=== PATIENT | female | born 2000 | race Caucasian/White ===

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

== ENCOUNTER 2019-05-22 13:59 | Emergency (ER) | payer MEDICAID ==
[~2019-05-22] VITALS: Ht 165.1 cm; Wt 77.3 kg
[2019-05-22 14:05] VITALS: Ht 165.1 cm; Wt 77.3 kg
[2019-05-22] MEDS ORDERED: PRENAVITE1 TAB PO (14:06)
[2019-05-22 14:52] LABS: BASOPHILS 0.1 % (0-2); EOSINOPHILS 0.3 % (0-7); HEMATOCRIT 35.4 % (36.0-48.0); HEMOGLOBIN 11.5 g/dL (12-16); IMMATURE GRANULOCYTES 0.2 % (0-5); LYMPHOCYTES 30.7 % (15-50); MCH 29.5 pg (26.0-34.0); MCHC 32.5 g/dL (31.0-37.0); MCV 90.8 fL (80.0-100.0); MEAN PLATELET VOLUME 9.2 fL (7.4-10.4); MONOCYTES 6.2 % (2-11); NEUTROPHILS 62.5 % (40-80); PLATELET COUNT 302 10x3/uL (130-400); RDW 12.5 % (11.5-14.5); WBC 9.2 10x3/uL (4.8-10.8)
[2019-05-22 15:14] LABS: CALC OSMOLALITY 267 mosm/kg (275-300); CALCIUM 8.8 mg/dL (8.5-10.1); CARBON DIOXIDE 24.4 mmol/L (21.0-32.0); CHLORIDE - SERUM 103 mmol/L (98-107); CREATININE - SERUM 0.6 mg/dL (0.6-1.3); GLUCOSE 76 mg/dL (74-106); POTASSIUM - SERUM 3.7 mmol/L (3.5-5.1); SODIUM 136 mmol/L (136-145); UREA NITROGEN 5 mg/dL (7-18); eGFR NON AFRICAN AMERICAN > 90 mL/min (90-120)
[2019-05-22 15:15] LABS: HCG SERUM POSITIVE (NEGATIVE)
[2019-05-22 15:16] LABS: BILIRUBIN NEGATIVE (NEGATIVE); GLUCOSE NEGATIVE (NEGATIVE); KETONE MODERATE mg/dL (NEGATIVE); NITRITE NEGATIVE (NEGATIVE); SPECIFIC GRAVITY 1.015 (1.005-1.020); UROBILINOGEN NORMAL (NORMAL)
[2019-05-22 15:18] LABS: BACTERIA MODERATE /hpf (NEGATIVE); RED CELLS - URINE 0-5 /hpf (0-5); WHITE CELLS - URINE 0-5 /hpf (NEGATIVE)
[2019-05-22 15:41] LABS: ALBUMIN 3.2 g/dL (3.4-5.0); ALKALINE PHOSPHATASE 46 U/L (30-120); ALT (SGPT) 25 U/L (10-68); BILIRUBIN - TOTAL 0.38 mg/dL (0.2-1.3); HCG - QUANTITATIVE (MATERNAL) 17589 mIU/mL; PROTEIN - SERUM 7.2 g/dL (6.4-8.2)
[2019-05-22 16:12] VITALS: BP 118/66
== END 2019-05-22 16:38 | disposition home or self-care (01) ==
LOC: D.ER 13:59
PROVIDERS: Family Medicine
DX: O46.8X2 Other antepartum hemorrhage, second trimester (principal); Z3A.15 15 weeks gestation of pregnancy

== ENCOUNTER → 2019-08-19 23:50 | Outpatient (CLI) | payer MEDICAID ==
[2019-05-22 14:05] VITALS: BMI 28.3
[~2019-08-19 23:50] MED LIST: PRENAVITE1 TAB PO
== END | disposition home or self-care (01) ==
LOC: D.LDO 23:50
PROVIDERS: ATTEND Student in an Organized Health Care Education/Training Program
DX: O26.899 Other specified pregnancy related conditions, unspecified trimester (principal); Z3A.00 Weeks of gestation of pregnancy not specified

== ENCOUNTER 2019-11-06 05:00 | Inpatient (IN) | payer OTHER ==
[~2019-11-06] VITALS: Ht 165.1 cm; Wt 93.0 kg
[2019-11-06 05:12] VITALS: BP 121/80; Ht 165.1 cm; Wt 93.0 kg
[2019-11-06 05:49] LABS: HEMATOCRIT 33.2 % (36.0-48.0); HEMOGLOBIN 10.8 g/dL (12-16); MCH 27.3 pg (26.0-34.0); MCHC 32.5 g/dL (31.0-37.0); MCV 84.1 fL (80.0-100.0); MEAN PLATELET VOLUME 9.3 fL (7.4-10.4); PLATELET COUNT 366 10x3/uL (130-400); RBC 3.95 10x6/uL (4.00-5.40); RDW 14.1 % (11.5-14.5); WBC 11.1 10x3/uL (4.8-10.8)
[2019-11-06 06:12] LABS: EOSINOPHILS 2 % (0-7); LYMPHOCYTES 25 % (15-50); MONOCYTES 9 % (2-11); NEUTROPHILS 64 % (40-80); PLATELET ESTIMATE NORMAL
[2019-11-06 08:40] LABS: BILIRUBIN NEGATIVE (NEGATIVE); KETONE NEGATIVE (NEGATIVE); NITRITE NEGATIVE (NEGATIVE); UROBILINOGEN NORMAL mg/dL (< 2)
[2019-11-06 08:42] LABS: UDS - AMPHET NEGATIVE QUAL (NEGATIVE); UDS - BARB NEGATIVE QUAL (NEGATIVE); UDS - BENZO NEGATIVE QUAL (NEGATIVE); UDS - COCAINE NEGATIVE QUAL (NEGATIVE); UDS - OPIATE NEGATIVE QUAL (NEGATIVE); UDS - PCP NEGATIVE QUAL (NEGATIVE); UDS - THC NEGATIVE QUAL (NEGATIVE)
[2019-11-07] VITALS (8 sets, daily range): BP systolic 102–121; BP diastolic 53–75
--- NOTE | 2019-11-07 04:10 | NUR ---
PT BACK TO ROOM FROM PACU. AWAKE AND SLIGHTLY GROGGY. ORIENTED X3. VSS. ABD SOFT AND TENDER. BS HYPOACTIVE. ABD DRESSING TO LOWER ABD DRY AND INTACT.FUNDUS FIRM DEVIATED TO RIGHT AT UMBILICUS WITH MODERATE AMT OF RUBRA LOCHIA RETURNED WITH MASSAGE NO CLOTS. MIRZA TO BSD DRAINING DEVANTE COLORED URINE. PT RATES PAIN 3/10. SCD'S ON. PT UNABLE TO MOVE LOWER EXTREMITIES. S/O AT BEDSIDE.
--- NOTE | 2019-11-07 04:30 | NUR ---
FUNDUS FIRM MIDLINE AT UMBILICUS WITH SMALL AMT OF RUBRA LOCHIA RETURNED WITH MASSAGE. ABY AND MIRZA CARE DONE.
--- NOTE | 2019-11-07 04:45 | NUR ---
FUNDUS FIRM MIDLINE AT UMBILICUS WITH SCANT AMT OF RUBRA LOCHIA RETURNED.
--- NOTE | 2019-11-07 05:00 | NUR ---
PT SITTING UP DRINKING JUICE, DENIES ANY NAUSEA. FUNDUS FIRM MIDLINE AT UMBILICUS WITH SCANT AMT OF RUBRA LOCHIA. ABY CARE DONE,
--- NOTE | 2019-11-07 05:15 | NUR ---
PT AWAKE, RATES PAIN 3/10 GEOSCIENCE PROFESSOR EFFECTIVE FOR PAIN CONTROL. FUNDUS FIRM MIDLINE AT UMBILICUS WITH SCANT AMT OF RUBRA LOCHIA RETURNED.
--- NOTE | 2019-11-07 05:30 | NUR ---
FUNDUS FIRM MIDLINE AT UMBILICUS WITH SCANT AMT OF RUBRA LOCHIA. BACK TO NURSERY. PT RESTING QUIETLY, LIGHTS DIMMED, ENCOURAGED PT REST. S/O AT BEDSIDE. CALL LIGHT, PHONE, AND MANAGER INSTALLATION BUTTON IN REACH
--- NOTE | 2019-11-07 08:15 | NUR ---
AM ASSESSMENT COMPLETED. ABDOMEN PALPATES SOFT, WITH LARGE WHITE DRESSING NOTED TO LOW TRANSVERSE INCISION, C/D/I. FUNDS FIRM, U/1, SMALL RUBRA LOCHIA, NO CLOTS EXPELLED. MIRZA CATH EMPTIED WITH TOTAL OF 800 ML'S DARK YELLOW URINE, PERICARE DONE WITH WARM WET WASHCLOTHS, NEW PERITOWELS/CHUX CHANGED. NEW PERIPADS PLACED. GOWN CHANGED, AND NEW ICE PACK PLACED OVER GOWN TO INCISION. PT REPOSITIONED TO RIGHT TILT. PT USING INCENTIVE SPIROMETER X5 WELL, AND COUGHING EXERCISES X3. PILLOWS PLACED BEHIND BACK FOR SUPPORT AND COMFORT. CLEAN SHEET AND BLANKET PROVIDED. LARGE MUG OF ICE WATER SERVED TO PT. PT DENIES ALL OTHER NEEDS. SRUP X2, CALL LIGHT AND PHONE WITHIN REACH.
--- NOTE | 2019-11-07 09:15 | NUR ---
INFANT TO ROOM IN CRIB, BANDS VERIFIED. NO DISTRESS NOTED. BABY HANDED TO MOTHER TO [place]. FOB AWAKE NOW. ALL DENY NEEDS AT THIS TIME.
[2019-11-07 10:02] LABS: HEMATOCRIT 27.1 % (36.0-48.0); MCH 25.8 pg (26.0-34.0); MCHC 30.6 g/dL (31.0-37.0); MCV 84.2 fL (80.0-100.0); MEAN PLATELET VOLUME 8.3 fL (7.4-10.4); RBC 3.22 10x6/uL (4.00-5.40); RDW 14.1 % (11.5-14.5); WBC 11.2 10x3/uL (4.8-10.8)
[2019-11-07 10:24] LABS: HEMOGLOBIN 8.3 g/dL (12-16); PLATELET COUNT 243 10x3/uL (130-400)
[2019-11-07 10:48] LABS: LYMPHOCYTES 11 % (15-50); MONOCYTES 2 % (2-11); NEUTROPHILS 86 % (40-80); PLATELET ESTIMATE NORMAL
--- NOTE | 2019-11-07 12:28 | NUR ---
TORADOL 30 MG GIVEN IVP DILUTED IN 8 CC'S NS. SEE EMAR FOR ALL MEDS ADM BY THIS RN. SRUP X2, CALL LIGHT AND PHONE WITHIN REACH. PT HAS REGULAR LUNCH TRAY ON BEDSIDE TABLE, DENIES N/V, SOB, DIZZINESS OR DIFFICULTY BREATHING. PT CONTINUES TO USE INCENTIVE SPIROMETER WELL. ABDOMEN CONTINUES TO PALPATE SOFT, SURGICAL DRESSING REMAINS C/D/I, SMALL RUBRA LOCHIA, U/1, NO CLOTS. FOB HAVING DICCICULTY WITH FEEDING . EDUCATION PROVIDED TO CHECK FOR CLEAN AND DRY DIAPER, SWADDLE , AND POSITIONING OF WHILE FEEDING. BABY WILL LATCH FOR A FEW SECONDS AND THEN NOT LATCH WELL. FOB WILL FEED . CHAITANYA SANCHEZ NURSERY INFORMED OF BABY'S POOR LATCH EFFORTS. SHE WILL ROUND ON WHEN FINISHED FEEDING CURRENT BABY. MOTHER AND FATHER AGREE. DENIES ALL OTHER NEEDS AT THIS TIME.
--- NOTE | 2019-11-07 14:00 | NUR ---
DR. SPICER ON UNIT, TO ROOM TO SPEAK WITH PT. DISCUSSING PLAN OF CARE WITH PT TO ADVANCE CARE, WILL D/C HERMES, ROSANNE IV, ADVANCE DIET, AND CHANGE PAIN MEDICINE TO PO.
--- NOTE | 2019-11-07 16:15 | NUR ---
TO PT'S ROOM, IV PITOCIN IS COMPLETED. PT PUSHES RENT COLLECTOR BUTTON BEFORE DISCONTINUATION. MEDICATION FOR PO PAIN MEDS DISCUSSED WITH PT. SEE EMAR FOR ALL MEDS ADM BY THIS RN. FUNDUS FIRM, U/1, ABD SOFT, WITH MARIANGEL NOTED TO LTCS INCISION, C/D/I. MIRZA CATH DC'D WITH 300 MLS EMPTIED. TOTAL OF 1300 FOR THIS SHIFT. PERICARE DONE WITH WARM WET WASHCLOTHS, NEW PERIPAD/CHUX APPLIED. NEW ICE PACK PLACED OVER GOWN TO INCISION. PT REQUESTS APPLE JUICE, SERVED. IV SL. DENIES ALL OTHER NEEDS. SRUP X2, CALL LIGHT AND PHONE WITHIN REACH.
--- NOTE | 2019-11-07 18:00 | NUR ---
PT CALLS OUT CHECK AND TRANSFER BEADER LIGHT REQUESTING TO GET UP TO THE BATHROOM TO PEE, TO ROOM, PT ASSISTED UP TO BR, GAIT SLOW AND STEADY. PT THEN VOIDS 600 MLS INTO [place] HAT, 2 SMALL DIME SIZED CLOTS NOTED IN [place] HAT. PERICARE DONE WITH WARM WET WASHCLOTHS, AND PERIBOTTLE, PERIPADS/PANTIES ON, PT THEN BACK TO BED. SRUP X2, CALL LIGHT AND PHONE WITHIN REACH. SRUP X 2, CALL LIGHT AND PHONE WITHIN REACH. PT SERVED SPRITE TO DRINK AT HER REQUEST. PT DENIES ALL OTHER NEEDS AT THIS TIME. SRUP X2, CALL LIGHT AND PHONE WITHIN REACH.
--- NOTE | 2019-11-07 18:55 | NUR ---
REPORT GIVEN TO 7 P SHIFT.
--- NOTE | 2019-11-07 19:30 | NUR ---
PATIENT AMBULATING IN HALLWAY WITH SIGNIFICANT OTHER AT THIS TIME, NO DISTRESS NOTED.
--- NOTE | 2019-11-07 20:17 | NUR ---
SHIFT ASSESSMENT COMPLETED, SEE FLOWSHEET. SIGNIFICANT OTHER AT BEDSIDE FOR SUPPORT. PT ENCOURAGED TO CALL WITH ANY NEEDS.
--- NOTE | 2019-11-07 22:30 | NUR ---
APPLE JUICE PROVIDED PER PT REQUEST. BED REMAINS LOCKED IN LOW POSITION, SIDERAILS UPX2, CALL ZEPEDA AND TRAY TABLE IN REACH. NO OTHER NEEDS IDENTIFIED, WILL CONTINUE TO MONITOR.
--- NOTE | 2019-11-07 22:45 | NUR ---
PAIN MEDICATION ADMINISTERED PER PT REQUEST AND MD ORDERS, SEE EMAR
--- NOTE | 2019-11-07 23:56 | NUR ---
PAIN MEDICATION ADMINISTERED PER PT REQUEST AND MD ORDERS. SEE EMAR
[2019-11-08] VITALS (7 sets, daily range): BP systolic 96–119; BP diastolic 51–55
--- NOTE | 2019-11-08 01:00 | NUR ---
PT SITTING UP IN BED, AT BEDSIDE IN OPEN CRIB. NO NEEDS IDENTIFIED, WILL CONTINUE TO MONITOR.
--- NOTE | 2019-11-08 03:10 | NUR ---
PT SITTING UP IN BED, REMAINS IN OPEN CRIB AT BEDSIDE. PT DENIES NEEDS, TO NURSERY VIA OPEN CRIB AT THIS TIME.
--- NOTE | 2019-11-08 04:45 | NUR ---
IN TO ADMINISTER PAIN MEDICATION AND PT REFUSES. STATES THAT SHE DOESNT NEED ANY PAIN MEDICATION.
--- NOTE | 2019-11-08 05:25 | NUR ---
INFANT TO ROOM VIA OPEN CRIB, ID VERIFIED. PT DENIES NEEDS AT THIS TIME. WILL CONTINUE TO MONITOR
[2019-11-08 06:34] LABS: BASOPHILS 0.2 % (0-2); EOSINOPHILS 0.6 % (0-7); HEMATOCRIT 23.5 % (36.0-48.0); IMMATURE GRANULOCYTES 0.5 % (0-5); LYMPHOCYTES 21.1 % (15-50); MCH 25.9 pg (26.0-34.0); MCHC 30.6 g/dL (31.0-37.0); MCV 84.5 fL (80.0-100.0); MEAN PLATELET VOLUME 9.5 fL (7.4-10.4); MONOCYTES 13.3 % (2-11); NEUTROPHILS 64.3 % (40-80); PLATELET COUNT 275 10x3/uL (130-400); RBC 2.78 10x6/uL (4.00-5.40); RDW 14.2 % (11.5-14.5); WBC 13.3 10x3/uL (4.8-10.8)
[2019-11-08 06:43] LABS: HEMOGLOBIN 7.2 g/dL (12-16)
--- NOTE | 2019-11-08 06:49 | NUR ---
DR SPICER PAGED
--- NOTE | 2019-11-08 06:50 | NUR ---
DR SPICER CALLED BACK, REPORTED PTS H&H. NEW ORDERS NOTED TO TRANSFUSE ONE UNIT PRBC'S AND REPEAT AN H&H AT NOON.
--- NOTE | 2019-11-08 07:00 | NUR ---
REPORT TO AM SHIFT TO ASSUME PT CARE.
--- NOTE | 2019-11-08 07:56 | NUR ---
VSS. C/O ABD AND INCISIONAL DISCOMFORT. EDUCATED ON PAIN MEDS AND INTERVENTIONS. REQUESTS NORCO AND MOTRIN, WILL PROVIDE. DR. SPICER AT BEDSIDE, DISCUSSING POC WITH PT AND ANSWERING QUESTIONS REGARDING PRBC. PT AGREEABLE TO RECEIVING PRBC TRANSFUSION.
--- NOTE | 2019-11-08 08:05 | NUR ---
PREMED FOR PRBC GIVEN. CONTINUES TO C/O ABD AND INCISIONAL DISCOMFORT, MEDICATED PER EMAR. PT INSTRUCTED ON NEXT PAIN MED TIMES PRN, VERBALIZES UNDERSTANDING. L WRIST PIV FLUSHES WITHOUT DIFFICULTY, NO S/S OF INFILTRATION NOTED. ICE WATER AND ORANGE JUICE PROVIDED PER PT REQUEST. BED IN LOW POSITION WITH SRUP X2. CALL LIGHT AND PHONE WITHIN REACH. WILL CONTINUE TO MONITOR.
--- NOTE | 2019-11-08 08:19 | NUR ---
EDUATED ON S/S OF TRANFUSION REACTION TO REPORT, VERBALIZES UNDERSTANDING. UNIT VERIFIED WITH Tyson TY RN. PRBC TRANSFUSION STARTED AT 150MLS/HR. THIS RN REMAINS AT BEDSIDE.
--- NOTE | 2019-11-08 08:26 | NUR ---
SHIFT ASSESSMENT COMPLETED PER FLOWSHEET. VSS. FUNDUS FIRM, MIDLINE AND U1 WITH SCANT RUBRA LOCHIA, NO CLOTS NOTED. REPORTS THAT SHE IS VOIDING AND PASSING FLATUS WITHOUT DIFFICULTY. PRBC TRANSFUSION GOING AT THIS TIME WITHOUT DIFFICULTY, NO S/S OF INFILTRATION NOTED. REFUSES SCD'S AT THIS TIME. 2+ BLE PITTING EDEMA, PT REPORTS IMPROVEMENT IN EDEMA SINCE ADMIT. POC DISCUSSED WITH PT AND SIGNFICANT OTHER, BOTH VERBALIZE UNDERSTANDING AND DENY QUESTIONS. BED IN LOW POSITION WITH SRUP X2. CALL LIGHT AND PHONE WITHIN REACH.
--- NOTE | 2019-11-08 08:36 | NUR ---
VSS. NO S/S OF PRBC TRANSFUSION REACTION NOTED. RATE INCREASED TO 175 MLS/HR. WILL CONTINUE TO MONITOR. FOB AWAKE AND FEEDING INFANT AT THIS TIME. PT DENIES NEEDS. REPORTS THAT PAIN IS NOW 3/10. BED IN LOW POSITION WITH SRUP X2. CALL LIGHT AND PHONE WITHIN REACH. WILL CONTINUE TO MONITOR.
--- NOTE | 2019-11-08 09:31 | NUR ---
PRBC CONTINUES TO INFUSE WITHOUT DIFFICUTLY, NO S/S OF TRANSFUSION REACTION. DENIES NEEDS AT THIS TIME. DENIES PAIN. BED IN LOW POSITION WITH SRUP X2. CALL LIGHT AND PHONE WITHIN REACH. WILL CONTINUE TO MONITOR.
--- NOTE | 2019-11-08 10:10 | MORECARE ---
CASE MANAGEMENT DISCHARGE SUMMARY PATIENT: LÁZARO ARELLANO UNIT: [id number] ADM DATE: 11/06/19 AGE: 19 : [birth year] SEX: F ROOM/BED: D.1273 AUTHOR: EDUARD SIMMS PHYSICIAN: REFERRING PHYSICIAN: CORTNEY SPICER MD DATE OF SERVICE: 11/08/19 Discharge Plan Patient Name: LÁZARO ARELLANO Facility: [facility]:[place] : 2000 Planned Disposition: Home Anticipated Discharge Date: 11/11/19 Discharge Date: Expected LOS: 5 Initial Reviewer: [email or web address] Initial Review Date: 11/06/2019 Generated: 11/08/19 11:09 am Patient Name: LÁZARO ARELLANO Page [phone] at 1010 All edits/amendments must be made on the electronic document DICTATION DATE: 11/08/19 1009 CHICK SEXER: RAYMOND 11/08/19 1009 RPT#: [id number] DC DATE: STATUS: ADM IN [facility] [address] [place] [address] END OF REPORT
--- NOTE | 2019-11-08 10:24 | NUR ---
PRBC TRANSFUSION COMPLETED. VSS. NO S/S OF TRANSFUSION REACTION NOTED. L WRIST PIV NOTED TO BE LEAKING, D/C'D WITH TIP INTACT. BANDAID APPLIED. PADS PROVIDED PER [facility] REQUEST. DENIES ADDITIONAL NEEDS. BED IN LOW POSITION WITH SRUP X2. CALL LIGHT AND PHONE WITHIN REACH. RESTING QUIETLY IN OPEN CRIB AT BEDSIDE. FOB SLEEPING ON COUCH.
--- NOTE | 2019-11-08 11:39 | NUR ---
POST TRANSFUSION VSS. C/O INCISIONAL AND ABD DISCOMFORT, NORCO GIVEN PER EMAR. DENIES ADDITIONAL NEEDS. BED IN LOW POSITION WITH SRUP X2. CALL LIGHT AND PHONE WITHIN REACH. WILL CONTINUE TO MONITOR. INFANT RESTING QUIETLY IN OPEN CRIB AT BEDSIDE. FOB SLEEPING ON COUCH.
--- NOTE | 2019-11-08 12:19 | NUR ---
PAIN REASSESSMENT COMPLETED, TALKING ON CELL PHONE, PAIN 04/05. DENIES NEEDS. WILL NOTIFY RN WHEN READY TO SHOWER.
--- NOTE | 2019-11-08 12:53 | NUR ---
PT TO BR TO SHOWER. LINENS AND TOILETRIES PROVIDED AT PT REQUEST.
--- NOTE | 2019-11-08 14:26 | NUR ---
VSS. FUNDUS REMAINS FIRM, MIDLINE AND U2. SMALL AMT RUBRA LOCHIA, NO CLOTS NOTED. PAIN 1/10, ABD AND INCISIONAL DISCOMFORT. MOTRIN OFFERED AND DECLINED. PT INSTRUCTED TO NOTIFY RN WHEN READY FOR LINEN CHANGE, VERBALIZES UNDERSTANDING. DENIES NEEDS AT THIS TIME. BONDING WITH . FOB AT BEDSIDE, SUPPORTIVE AND ATTENTIVE TO PT AND NEEDS. BED IN LOW POSITION WITH SRUP X2. CALL LIGHT AND PHONE WITHIN REACH. WILL CONTINUE TO MONITOR.
--- NOTE | 2019-11-08 14:57 | NUR ---
AMBULATORY IN [place] WITH SIGNIFICANT OTHER. STEADY GAIT NOTED. DENIES NEEDS. REQUEST PAIN MEDICATION AT NEXT AVAILABLE TIME.
--- NOTE | 2019-11-08 15:39 | NUR ---
RN TO BEDSIDE D/T HEARING RAISED VOICES COMING FROM ROOM. PT AND SIGNIFICANT OTHER ARGUING, PT TEARFUL, STATES THAT SIGNIFICANT OTHER IS WANTING HER TO WALK OUTSIDE WITH HIM AND SHE DOESN'T FEEL LIKE IT. DISCUSSED WITH PT AND SIGNIFICANT OTHER IMPORTANCE OF REMAINING ON UNIT D/T RECEIVING NAROTICS AND ALSO IF QUESTIONS REGARDING CARE ARISE. SIGNIFICANT OTHER STATES THAT HE IS GOING TO LEAVE, PT ENCOURAGED HIM TO LEAVE. PT DENIES NEEDS, STATES THAT SHE IS OKAY AND DENIES WANTING TO SPEAK WITH ANYONE AT THIS TIME. IN NBN. BED IN LOW POSITION WITH SRUP X2. CALL LIGHT AND PHONE WITHIN REACH.
--- NOTE | 2019-11-08 16:09 | NUR ---
PAIN REASSESSMENT COMPLETED, 05/03. DENIES NEED FOR ADDITIONAL INTERVENTIONS. SIGNIFICANT OTHER NOT AT BEDSIDE AT THIS TIME, STATES THAT HE LEFT "FOR A LITTLE BIT BUT IS SUPPOSED TO COME BACK." STATES THAT SHE IS GOING TO [place]. DENIES NEEDS. BED IN LOW POSITION WITH SRUP X2. CALL LIGHT AND PHONE WITHIN REACH. REMAINS IN NBN AT THIS TIME.
--- NOTE | 2019-11-08 16:41 | NUR ---
PT SUPERVISOR OFFSET PLATE PREPARATION LIGHT. REQUESTS AND RECEIVES TOWELS. STATES SO IS IN SHOWER AT THIS TIME.
--- NOTE | 2019-11-08 18:00 | NUR ---
PT LYING IN SEMI-GONZALEZ'S POSITION. EYES CLOSED. RESP NON-LABORED. PT WAKES UPON ENTERING ROOM. DENIES NEEDS OR C/O.
--- NOTE | 2019-11-08 18:04 | NUR ---
ROUNDS MADE. LIGHTS OFF, RESTING QUIETLY WITH EYES CLOSED, RESP REGULAR AND UNLABORED, NO S/S OF DISTRESS NOTED. BED IN LOW POSITION WITH SRUP X2. CALL LIGHT AND PHONE WITHIN REACH. WILL CONTINUE TO MONITOR.
--- NOTE | 2019-11-08 19:09 | NUR ---
SHIFT ASSESSMENT COMPLETED, SEE FLOWSHEET.
[2019-11-08 19:30] LABS: HEMATOCRIT 26.2 % (36.0-48.0); HEMOGLOBIN 8.2 g/dL (12-16)
--- NOTE | 2019-11-08 20:44 | NUR ---
PAIN MEDICATION ADMINISTERED PER PT REQUEST AND MD ORDERS. SEE EMAR. PT SITTING UP IN BED WITH INFANT IN HER ARMS. BED REMAINS LOCKED IN LOW POSITION, SIDE RAILS UPX2, CALL ZEPEDA AND TRAY TABLE IN REACH. NO FURTHER NEEDS IDENTIFIED. SIGNIFICANT OTHER AT BEDSIDE FOR SUPPORT. WILL CONTINUE TO MONITOR.
--- NOTE | 2019-11-08 22:23 | NUR ---
PT SITTING UP IN BED CHANGING INFANTS DIAPER, DENIES NEEDS AT THIS TIME. WILL CONTINUE TO MONITOR
--- NOTE | 2019-11-09 00:51 | NUR ---
PATIENT SITTING UP IN BED, SIGNIFICANT OTHER ALSO IN BED HOLDING THE . PAIN MEDICATION ADMINISTERED PER PT REQUEST AND MD ORDERS. SEE EMAR. NO FURTHER NEEDS IDENTIFIED. WILL CONTINUE TO MONITOR
--- NOTE | 2019-11-09 03:20 | NUR ---
PATIENT SITTING UP IN BED GETTING A BOTTLE READY TO FEED HER . PT DENIES NEEDS AT THIS TIME. WILL CONTINUE TO MONITOR.
[2019-11-09 04:09] LABS: RAPID PLASMA REAGIN Non Reactive (Non Reactive)
--- NOTE | 2019-11-09 04:50 | NUR ---
PATIENT SLEEPING, RESPIRATIONS EVEN AND NON LABORED. NO DISTRESS NOTED, WILL CONTINUE TO MONITOR.
--- NOTE | 2019-11-09 05:15 | NUR ---
INFANT RETURNED TO ROOM VIA OPEN CRIB, ID VERIFIED.
--- NOTE | 2019-11-09 06:40 | NUR ---
PATIENT RESTING QUIETLY WITH EYES CLOSED, EASILY AROUSED TO VERBAL. NO NEEDS IDENTIFIED AT THIS TIME, WILL CONTINUE TO MONITOR
--- NOTE | 2019-11-09 06:51 | OP ---
PATIENT NAME: LÁZARO ARELLANO MEDICAL RECORD: [id number] :[birth year] LOCATION:[facility] D.1273 ADMISSION DATE:11/06/19 SURGEON: GAEL DORSEY MD DATE OF OPERATION: 11/07/2019 PREOPERATIVE DIAGNOSES: 1. Term intrauterine at 39 weeks. 2. Failed induction of labor. 3. Arrest of descent in the second stage of labor. POSTOPERATIVE DIAGNOSES: 1. Term intrauterine at 39 weeks. 2. Failed induction of labor. 3. Arrest of descent in the second stage of labor. PROCEDURE: Primary low transverse section. SURGEON: Gael Dorsey MD ANESTHESIA: Regional via epidural. INTRAVENOUS FLUIDS: Per anesthesia record. ESTIMATED BLOOD LOSS: 1200 cc. SPECIMENS: Placenta and cord for gases. FINDINGS: 1. Viable , Apgars 9 at one and 9 at five. 2. Placenta delivered manually intact, 3-vessel cord noted. 3. Normal adnexa bilaterally. COMPLICATIONS: None apparent. SPECIMENS: Placenta and cord for gases. PROCEDURE IN DETAIL: The patient was taken to the operating room where regional anesthesia was achieved without difficulty. The patient was prepped and draped in normal sterile fashion in the dorsal supine position. SCDs were on and functioning normally. A Carmona catheter had been placed and was draining freely. The patient was prepped and draped, and upon testing of the anesthetic level, a Pfannenstiel skin incision was made, extended downward to the underlying subcutaneous fat to level of fascia. The fascia was then excised in the midline and extended bilaterally using the Jacques scissors. Superior and inferior aspect of the fascial incision were then tented upward with 2 Alonzo clamps and dissected using the Jacques scissors and bipolar cautery. The rectus muscle was then bluntly in the midline and the peritoneal incision entered at the superior aspect of the incision bluntly. The peritoneal incision was then stretched and excised bilaterally using the Metzenbaum scissors and bladder blade was then placed into the pelvis and a bladder flap created by excising the anterior leaf of the broad ligament across the lower uterine segment. Due to a known low lying anterior placenta, a low transverse incision was made approximately 3/4 of a depth of the uterine tissue and then the rest of the tissue was then perforated bluntly using a finger. The uterine incision was then extended using the Pelosi method. The vertex was delivered OPERATIVE REPORT [id number] COGBURN,LÁZARO atraumatically followed by the body. Then it was bulb suctioned. Upon delivery, the cord was clamped times 2, cut, and the infant was handed to awaiting nursery team. Cord was then obtained for gases and the placenta was removed manually and intact. The placenta was exteriorized and cleared of all clots and debris and vigorously massaged. A good uterine tone was noted. The uterine incision was repaired with 0 Vicryl in a running locked fashion times 3 with multiple periods of mild atony relieved by massage. Following repair of the uterus, posterior cul-de-sac was then thoroughly irrigated and uterus was returned to the pelvis. Anterior cul-de-sac was then thoroughly irrigated and the uterine incision was found to be hemostatic. The counts were correct times 2 for needles, sponges, and instruments. The fascia was repaired with 0 loop PDS and skin repaired with michelle. The patient tolerated procedure well, transferred to postanesthesia recovery, stable without incident. TRANSINT:[id number] Voice Confirmation ID: [id number] DOCUMENT ID: [id number] GAEL DORSEY MD at 0651 CC: [id number] DICTATION DATE: 11/08/19 1543 SPECIAL EFFECTS PERSON: 11/09/19 0150 ADM IN [facility] [address] [id number]
[2019-11-09 07:29] VITALS: BP 109/60
--- NOTE | 2019-11-09 07:29 | NUR ---
SHIFT ASSESSMENT COMPLETED PER FLOWSHEET. VSS. FUNDUS FIRM, MIDLINE AND U2 WITH SCANT RUBRA LOCHIA, NO CLOTS NOTED. REPORTS THAT SHE IS VOIDING AND PASSING FLATUS WITHOUT DIFFICULTY. BOWELS SOUNDS PRESENT AND ACTIVE X4 QUADRANTS. LOWER TRANSVERSE ABD INCISION WELL APPROXIMATED, MARIANGEL INTACT, NO DRAINAGE NOTED. 1+ BLE. REFUSES SCD'S. NEG VICKI'S SIGN BILATERALLY. C/O ABD AND INCISIONAL DISCOMFORT 08/03, REQUESTS PRN MEDS, WILL PROVIDE. ICE WATER AND ORANGE JUICE PROVIDED. DENIES ADDITIONAL NEEDS. BED IN LOW POSITION WITH SRUP X2. CALL LIGHT AND PHONE WITHIN REACH. WILL CONTINUE TO MONITOR. SIGNIFICANT OTHER SLEEPING ON COUCH. POC REVIEWED WITH PT, VERBALIZES UNDERSTANDING AND DENIES QUESTIONS.
--- NOTE | 2019-11-09 07:49 | NUR ---
DR. SPICER AT BEDSIDE DISCUSSING POC WITH PT. MEDICATED WITH NORCO AND MOTRIN PROVIDED PER EMAR PER PT REQUEST FOR C/O ABD AND INCISIONAL DISCOMFORT. DENIES ADDITIONAL NEEDS. SIGNIFICANT REMAINS ON COUCH SLEEPING AT THIS TIME.
--- NOTE | 2019-11-09 08:26 | NUR ---
RESTING WITH EYES CLOSED, AROUSES WITH DOOR OPENING. PAIN NOW 3/10, DENIES ADDITIONAL NEEDS. BED IN LOW POSITION WITH SRUP X2. CALL LIGHT AND PHONE WITHIN REACH. SIGNIFICANT OTHER REMAINS SLEEPING ON COUCH.
--- NOTE | 2019-11-09 09:17 | NUR ---
LAYING ON R SIDE, RESTING WITH EYES CLOSED, RESP REGULAR AND UNLABORED, NO S/S OF DISTRESS NOTED. BED IN LOW POSITON WITH SRUP X2. CALL LIGHT AND PHONE WITHIN REACH. WILL CONTINUE MONITOR.
--- NOTE | 2019-11-09 10:23 | NUR ---
ROUNDS MADE. RESTING QUIETLY IN SEMI-FOLWERS POSITION. RESP REGULAR AND UNLABORED, NO S/S OF DISTRESS NOTED. BED IN LOW POSITION WITH SRUP X2. CALL LIGHT AND PHONE WTIHIN REACH. PT NOT DISTURBED TO ALLOW FOR REST. SIGNIFICANT OTHER SLEEPING ON COUCH.
--- NOTE | 2019-11-09 11:07 | NUR ---
AMBULATORY IN [place]. STATES THAT SHE IS GOING TO [place] TO GET . DENIES NEEDS AT THIS TIME. SIGNIFICANT OTHER WITH HER. STEADY GAIT NOTED.
--- NOTE | 2019-11-09 12:25 | NUR ---
WRITTEN SCRIPT PROVIDED PER PT REQUEST FOR SIGNIFICANT OTHER TO TAKE TO HAVE FILLED. PT REQUEST TO PAIN MEDICATION PRIOR TO TRIP HOME. DENIES ADDITIONAL NEEDS.
[2019-11-09] MEDS ORDERED: HYDROCODON-ACE1 EA10 PO (12:52)
[2019-11-09] MEDS ORDERED: IBUPROFEN600 MG PO (12:52)
--- NOTE | 2019-11-09 13:23 | NUR ---
C/O ABD AND INCISIONAL DISCOMFORT. MEDICATED PER EMAR PER ORDER/REQUEST.
--- NOTE | 2019-11-09 13:25 | NUR ---
VERBAL AND WRITTEN D/C INSTRUCTIONS PROVIDED TO PT AND SIGNIFICANT OTHER. BOTH VERBALIZE UNDERSTANDING AND DENY QUESTIONS. PT PROVIDED WITH COPIES OF PFW PP CARE INSTRUCTION, [employer] HANDOUT, SAVE YOUR LIFE HANDOUT, AND TOBACCO CESSATION INFO. PT DRESSING INFANT AT THIS TIME AND WILL NOTIFY RN WHEN IN [place] FOR W/C OFF UNIT.
--- NOTE | 2019-11-09 14:03 | NUR ---
OFF UNIT VIA W/C WITH ARIANE SANDOVAL LPN TO AWAITING VECHILE. REPORTS PAIN MEDS DECREASED PAIN TO 3/10.
== END 2019-11-09 14:03 | disposition home or self-care (01) | DRG 788 ==
LOC: D.LD 05:00
PROVIDERS: ADMIT Obstetrics & Gynecology; ATTEND Obstetrics & Gynecology
PROC: 10907ZC Drainage of Amniotic Fluid, Therapeutic from Products of Conception, Via Natural or Artificial Opening (ICD-10-PCS; 2019-11-06)
PROC: 3E033VJ Introduction of Other Hormone into Peripheral Vein, Percutaneous Approach (ICD-10-PCS; 2019-11-06)
PROC: 10D00Z1 Extraction of Products of Conception, Low, Open Approach (ICD-10-PCS; principal; 2019-11-07 02:40)
DX: O62.1 Secondary uterine inertia (principal); O61.0 Failed medical induction of labor; Z3A.39 39 weeks gestation of pregnancy; Z37.0 Single live birth

== ENCOUNTER 2020-08-11 19:44 | Emergency (ER) | payer BC ==
[~2020-08-11] VITALS: Ht 165.1 cm; Wt 83.6 kg
[~2020-08-11 19:44] MED LIST changes: +HYDROCODON-ACE1 EA10 PO; +IBUPROFEN600 MG PO
[2020-08-11 20:00] VITALS: Ht 165.1 cm; Wt 83.6 kg
[2020-08-11 21:10] LABS: BACTERIA FEW HPF (<MOD); BILIRUBIN NEGATIVE (NEGATIVE); KETONE NEGATIVE mg/dL (< 1+); NITRITE NEGATIVE (NEGATIVE); PH 5.5 (5.0-8.0); SQUAMOUS EPITHELIAL 4 HPF (0-4); UROBILINOGEN NORMAL mg/dL (< 2); WHITE CELLS - URINE 3 HPF (0-4)
[2020-08-11 21:40] LABS: BASOPHILS 0.2 % (0-2); EOSINOPHILS 0.5 % (0-7); HEMATOCRIT 36.4 % (36.0-48.0); LYMPHOCYTES 31.3 % (15-50); MCH 29.1 pg (26.0-34.0); MCHC 32.9 g/dL (31.0-37.0); MCV 88.4 fL (80.0-100.0); MEAN PLATELET VOLUME 7.7 fL (7.4-10.4); MONOCYTES 8.2 % (2-11); NEUTROPHILS 59.8 % (40-80); PLATELET COUNT 329 10x3/uL (130-400); RBC 4.11 10x6/uL (4.00-5.40); RDW 13.9 % (11.5-14.5); WBC 9.5 10x3/uL (4.8-10.8)
[2020-08-11 21:53] LABS: CALC OSMOLALITY 267 mosm/kg (275-300); CALCIUM 8.9 mg/dL (8.5-10.1); CARBON DIOXIDE 25.7 mmol/L (21.0-32.0); CHLORIDE - SERUM 104 mmol/L (98-107); CREATININE - SERUM 0.5 mg/dL (0.6-1.3); GLUCOSE 77 mg/dL (74-106); POTASSIUM - SERUM 3.6 mmol/L (3.5-5.1); SODIUM 136 mmol/L (136-145); UREA NITROGEN 5 mg/dL (7-18); eGFR NON AFRICAN AMERICAN > 90 mL/min (90-120)
[2020-08-11 22:20] LABS: ALBUMIN 3.1 g/dL (3.4-5.0); ALKALINE PHOSPHATASE 49 U/L (30-120); ALT (SGPT) 19 U/L (10-68); AMYLASE - SERUM 54 U/L (25-115); BILIRUBIN - TOTAL 0.19 mg/dL (0.2-1.3); HCG - QUANTITATIVE (MATERNAL) 10705 mIU/mL; LIPASE 73 U/L (73-393); PROTEIN - SERUM 7.3 g/dL (6.4-8.2); TROPONIN-I < 0.017 ng/mL (0.000-0.060)
[2020-08-11 23:15] VITALS: BP 101/64
== END 2020-08-11 23:16 | disposition home or self-care (01) ==
LOC: D.ER 19:44
PROVIDERS: Emergency Medicine
DX: O26.892 Other specified pregnancy related conditions, second trimester (principal); Z3A.15 15 weeks gestation of pregnancy; R10.9 Unspecified abdominal pain; M54.5 Low back pain; V89.2XXA Person injured in unspecified motor-vehicle accident, traffic, initial encounter